=== PATIENT | female | born 1950 | race Hispanic/Latino ===

== ENCOUNTER 2017-02-08 12:36 | Outpatient (CLI) | payer OTHER ==
--- NOTE | 2017-02-09 10:22 | Mammography Report ---
BILATERAL DIGITAL SCREENING MAMMOGRAM with CAD: 02/08/17 CLINICAL: Routine screening. COMPARISON:01/20/16 FINDINGS: The breasts are heterogeneously dense, which may obscure small masses. A right focal asymmetry requires additional imaging.No architectural distortion or suspicious calcifications.The left breast is negative. IMPRESSION: Right focal asymmetry requiring further workup. BI-RADS CATEGORY: 0 -- Additional Imaging Evaluation Required RECOMMENDATION: Recall for right lateralmedial and spot magnification MLO and CC views and right breast ultrasound if needed. ACR BI-RADS MAMMOGRAPHIC CODES: 0 = Needs additional imaging evaluation; 1 = Negative; 2 = Benign; 3 = Probably benign; 4 = Suspicious; 5 = Malignant; 6 = Known biopsy-proven malignancy COMMENT: 1. Dense breast tissue, i.e., adenosis, fibrocystic changes, etc., may obscure an underlying neoplasm. 2. Approximately 10% of cancers are not detected with mammography. 3. A negative mammography report should not delay biopsy if a clinically suspicious mass is present. COMMENT: Patient follow-up letters are generated via our [employer] application.
== END 2017-02-08 12:37 | disposition home or self-care (01) ==
LOC: SPVWC 12:36
PROVIDERS: ATTEND Obstetrics & Gynecology
DX: Z12.31 Encounter for screening mammogram for malignant neoplasm of breast (principal)
CPT/HCPCS: 77067; G0202

== ENCOUNTER 2017-03-28 14:13 | Outpatient (CLI) | payer OTHER ==
--- NOTE | 2017-03-28 15:02 | Mammography Report ---
RIGHT DIGITAL DIAGNOSTIC MAMMOGRAM : 03/28/17 14:13:00 CLINICAL: Recalled for asymmetries. COMPARISON:02/08/17 screening FINDINGS: Additional mammographic views were performed and are negative. IMPRESSION: No mammographic evidence of malignancy. BI-RADS CATEGORY: 1 -- Negative RECOMMENDATION: Routine mammographic screening in one year. ACR BI-RADS MAMMOGRAPHIC CODES: 0 = Needs additional imaging evaluation; 1 = Negative; 2 = Benign; 3 = Probably benign; 4 = Suspicious; 5 = Malignant; 6 = Known biopsy-proven malignancy COMMENT: 1. Dense breast tissue, i.e., adenosis, fibrocystic changes, etc., may obscure an underlying neoplasm. 2. Approximately 10% of cancers are not detected with mammography. 3. A negative mammography report should not delay biopsy if a clinically suspicious mass is present. COMMENT: Patient follow-up letters are generated via our [employer] application.
== END 2017-03-28 14:14 | disposition home or self-care (01) ==
LOC: SPVWC 14:13
PROVIDERS: ATTEND Obstetrics & Gynecology
DX: R92.8 Other abnormal and inconclusive findings on diagnostic imaging of breast (principal)